=== PATIENT | female | born 1960 | race Caucasian/White ===

== ENCOUNTER 2025-02-06 11:12 | Day surgery (SDC) | payer OTHER ==
[~2025-02-06] VITALS: Ht 157.5 cm; Wt 76.4 kg
[~2025-02-06 11:12] MED LIST: GILDESS FE 1-21 EACH PO; IBLOOD GLUCOSE TEST STRIP 1 EA TEST VI PRN; LACTATED RINGER'S 1,000 ML IV SCH; LIDOCAINE HCL 1% 5 ML SDV INJ ONE; MIDAZOLAM HCL 5 MG/5 ML VIAL IV PRN; SUMATRIPTAN SU100 MG PO; SYNTHROID25 MCG PO; fentaNYL citrate 100 MCG/2 ML VIAL IV PRN
[2025-02-06] MEDS ORDERED: VITAMIN D350 MC3 PO (11:46)
[2025-02-06 11:47] VITALS: BP 146/71
[2025-02-06] MEDS ORDERED: MIDAZOLAM HCL 5 MG/5 ML VIAL ONE (12:17)
[2025-02-06] MEDS ORDERED: fentaNYL citrate 100 MCG/2 ML VIAL ONE (12:17)
--- NOTE | 2025-02-06 13:09 | NUR ---
02/06/25 Kaleigh Bartholomew OXYGEN SATURATION REMAINS 100% ON 3L VIA NC. OXYGEN IS DISCONTINUED AT THIS TIME. DR BROWN PRESENTS TO THE BEDSIDE AND IS SPEAKING WITH PATIENT. HER QUESTIONS ARE ANSWERED.
[2025-02-06 13:31] VITALS: BP 127/66
--- NOTE | 2025-02-06 14:16 | OR ---
[facility] [address], [place] [address] Signed DATE OF OPERATION: 02/06/2025 SURGEON: Juan Brown MD PREOPERATIVE DIAGNOSIS: Colon screening. POSTOPERATIVE DIAGNOSIS: Normal colon to cecum. PROCEDURE: Total colonoscopy to cecum. ANESTHESIA: Intravenous sedation, fentanyl 150 mcg and Versed 5 mg. INDICATION: This 64-year-old white woman is a patient of Radames Quesada D.O. of [place], [place]. She last underwent colonoscopy by me in 2013. She has family history of polyps in a sister. She currently has no symptoms of bleeding, diarrhea, or constipation. She is admitted at this time to undergo surveillance screening colonoscopy. She understands the risk of bleeding, infection, and perforation. FINDINGS: The prep was excellent. Complete colonoscopy was undertaken of the cecum with full intubation of the cecum. There was no sign of polyps, diverticular formation, colitis, or cancer. DESCRIPTION OF PROCEDURE: The patient was brought to the endoscopy suite and placed in lateral decubitus position given intravenous sedation to the point of slurred speech and nystagmus. Full cardiopulmonary monitoring was maintained. Digital rectal examination was normal. An Olympus video colonoscope was passed in the rectum and manipulated throughout the colon ultimately intubating the cecum itself. The ileocecal valve and appendiceal orifice were normal. The scope was withdrawn from that point and examination throughout showed no sign of abnormality specifically no polyps, diverticular formation, colitis, or cancer. Retroflexed view of the rectum was normal as well. The scope was removed. The patient was taken to the recovery room in good condition. CONCLUDING DIAGNOSIS: Electronically Signed By: JUAN BROWN MD 02/06/25 1416 PATIENT NAME: ROSEANN PIERCE OPERATIVE REPORT DATE OF : 62 REPORT #: [id number] PHYSICIAN: JUAN BROWN MD PCP: RADAMES QUESADA DO REPORT IS CONFIDENTIAL AND NOT TO BE RELEASED WITHOUT AUTHORIZATION [facility] [address], [place] [address] Signed Normal colon to cecum. PLAN: Recommend repeat colonoscopy in 10 years based on current guidelines. She will return to the ongoing care of Radames Quesada D.O. MD SIL Vega/MODL /[id number] cc: DO Rodo Muñoz [place] Copies: ~ Electronically Signed By: JUAN BROWN MD 02/06/25 1416 PATIENT NAME: ROSEANN PIERCE OPERATIVE REPORT DATE OF : 62 REPORT #: [id number] PHYSICIAN: JUAN BROWN MD PCP: RADAMES QUESADA DO REPORT IS CONFIDENTIAL AND NOT TO BE RELEASED WITHOUT AUTHORIZATION
== END 2025-02-06 13:41 | disposition home or self-care (01) ==
LOC: DS 11:12
PROVIDERS: ATTEND Surgery
PROC: 0DJD8ZZ Inspection of Lower Intestinal Tract, Via Natural or Artificial Opening Endoscopic (ICD-10-PCS; principal; 2025-02-06 12:15)
DX: Z12.11 Encounter for screening for malignant neoplasm of colon (principal); G43.909 Migraine, unspecified, not intractable, without status migrainosus; E03.9 Hypothyroidism, unspecified; Z83.719 Family history of colon polyps, unspecified
CPT/HCPCS: 99153; G0500; J2250; J3010; J7121